=== PATIENT | female | born 2000 | race Caucasian/White ===

== ENCOUNTER 2024-05-08 17:42 | Emergency (ER) | payer BC, SELFPAY ==
[2024-05-08 17:52] VITALS: BP 117/72; PULSE 86; RESP 16; TEMP 37.1; O2SAT 100; BMI 24.6
[2024-05-08 18:54] LABS: Basophils % 0.5 %; Eosinophils # 0.1 10^3/uL (0.0-0.8); Eosinophils % 0.8 %; Hematocrit 38.8 % (36-47); Lymphocytes # 2.1 10^3/uL (0.8-4.8); Lymphocytes % 32.3 %; Mean Corpuscular HGB Conc 33.5 g/dL (30-55); Mean Corpuscular Hemoglobin 30.8 pg (27-33); Mean Corpuscular Volume 91.9 fl (85-98); Mean Platelet Volume 10.6 fL (7.4-10.4); Monocytes # 0.3 10^3/uL (0.2-0.9); Monocytes % 4.7 %; Neutrophils # 4.03 10^3/uL (1.8-7.7); Neutrophils % 61.4 %; Nucleated Red Blood Cells % 0 %; Platelet Count 332 10^3/cmm (157-399); Red Blood Count 4.22 10^6/uL (3.85-5.65); Red Cell Distribution Width 12.7 % (12.1-15.1); White Blood Count 6.56 10^3/uL (3.29-11.43)
[2024-05-08 19:03] VITALS: BP 104/72; PULSE 71; RESP 16; O2SAT 100
[2024-05-08 19:05] LABS: Add Urine Microscopic? NO; Charge for UA Resulting for Rev
[2024-05-08 19:10] LABS: Bilirubin Urine Neg (Negative); Blood Urine Neg (Negative); Glucose Urine UA Norm (Normal); Ketones Urine Negative (Negative); Leukocyte Esterase Urine Negative (Negative); Nitrate Urine Negative; Protein Urine Neg (Negative); Urine Appearance Clear (CLEAR); Urine Color Yellow (Yellow); Urobilinogen Urine Neg (Negative); pH Urine 5 (5-7)
[2024-05-08 19:11] LABS: Alanine Aminotransferase 10 U/L (0-33); Albumin Level 4.6 g/dL (3.5-5.2); Alkaline Phosphatase 76 U/L (35-105); Aspartate Amino Transferase 14 U/L (0-32); Blood Urea Nitrogen 8 mg/dL (6-20); Calcium 9.5 mg/dL (8.5-10.5); Carbon Dioxide 26 mmol/L (22-29); Chloride 106 mmol/L (98-107); Globulin 2.7 g/dL (1.3-4.6); Glomerular Filtration Rate 151.6 mL/min (90-130); Glucose 99 mg/dL (65-115); Lipase 43 U/L (13-60); Osmolality Calculated 294 mOsm/kg (285-295); Sodium 143 mmol/L (136-145); Total Bilirubin 0.6 mg/dL (0.15-1.2); Total Protein 7.3 g/dL (6.6-8.7)
[2024-05-08] MEDS: ondansetron 4 MG Tablet PO (19:38)
--- NOTE | 2024-05-08 19:44 | W.ED.NAVMDI ---
HPI - Nausea/Vomiting/Diarrhea General: Chief complaint: Nausea/Vomiting/Diarrhea Stated complaint: n/v, dizziness, 4 days Time Seen by Provider: 05/08/24 18:58 History of Present Illness: Patient presents to the ER with about 5 days of nausea and vomiting. She says she is hardly able to keep anything down. She is getting lightheaded dizzy when she stands up. Patient is taken multiple home tests and they are all been negative. Patient is actively trying get . Patient said no other complaints at this time and she has been around no one has been sick with similar components and is not eating any bad food that she is aware. Review of Systems General: Reports: 10 or more systems reviewed and unremarkable except in HPI and below Physical Exam Const: COMMON NORMALS: no acute distress, average body habitus, patient oriented x3, no limitations, healthy appearing, alert and well nourished HENMT: COMMON NORMALS: normocephalic, atraumatic, hearing grossly normal bilaterally, external ears normal, Normal external nose present, moist oral mucous membranes and oropharynx normal HEAD & SCALP: normocephalic and atraumatic NOSE: Normal external nose present EXTERNAL EAR: Yes external ears normal Neck/C-Spine: COMMON NORMALS: no JVD Chest: COMMONS NORMALS: normal inspection of the chest and normal palpation of entire chest wall Resp: COMMON NORMALS: normal respiratory effort, No retractions, No use of accessory muscles and clear to auscultation bilaterally AUSCULTATION: clear to auscultation bilaterally Cardio: COMMON NORMALS: no JVD, regular rate, regular rhythm, S1 normal heart sound present, S2 normal heart sound present, No gallops present (Cardio), No clicks present (Cardio), No murmurs present (Cardio) and No rub (Cardio) RATE: regular rate RHYTHM: regular rhythm HEART SOUNDS: S1 normal heart sound present and S2 normal heart sound present GI: COMMON NORMALS: Normal to inspection, nondistended, normoactive bowel sounds present, Soft to palpation, non-tender, No hepatosplenomegaly present and no masses PALPATION: Yes Soft to palpation and Yes No hepatosplenomegaly present Neuro: COMMON NORMALS: patient oriented x3 SENSORIUM/ORIENTATION: Yes alert Course Vital Signs: Vital signs: Vital Signs Temperature 98.8 F 05/08/24 17:52 Pulse Rate 71 05/08/24 19:03 Respiratory Rate 16 05/08/24 19:03 Blood Pressure 104/72 05/08/24 19:03 Pulse Oximetry 100 05/08/24 19:03 Oxygen Delivery Me thod Room Air 05/08/24 19:03 MDM - Nausea/Vomiting/Diarrhea Medical Decision Making Patient CBC CMP urinalysis lipase magnesium all of which is essentially negative for acute causes of nausea and vomiting. It is felt patient probably has a viral gastroenteritis. Patient will be given Zofran and instructed to follow-up with her PCP on an as-needed basis. Differential Diagnosis Likely gastroenteritis; Unlikely traveler's diarrhea, food poisoning, clostridium difficile infection, drug-induced nausea and vomiting or dehydration Medical Records I reviewed the patient's medical records. Lab Data I reviewed the patient's lab results. 05/08/24 18:47 05/08/24 18:47 Laboratory Results WBC 6.56 10^3/uL (3.29-11.43) 05/08/24 18:47 RBC 4.22 10^6/uL (3.85-5.65) 05/08/24 18:47 Hgb 13.00 g/dL (11.27-16.99) 05/08/24 18:47 Hct 38.8 % (36-47) 05/08/24 18:47 MCV 91.9 fl (85-98) 05/08/24 18:47 MCH 30.8 pg (27-33) 05/08/24 18:47 MCHC 33.5 g/dL (30-55) 05/08/24 18:47 RDW 12.7 % (12.1-15.1) 05/08/24 18:47 Plt Count 332 10^3/cmm (157-399) 05/08/24 18:47 MPV 10.6 fL (7.4-10.4) H 05/08/24 18:47 Neut % (Auto) 61.4 % 05/08/24 18:47 Lymph % (Auto) 32.3 % 05/08/24 18:47 [place] % (Auto) 4.7 % 05/08/24 18:47 Eos % (Auto) 0.8 % 05/08/24 18:47 Baso % (Auto) 0.5 % 05/08/24 18:47 Neut # (Auto) 4.03 10^3/uL (1.8-7.7) 05/08/24 18:47 Lymph # (Auto) 2.1 10^3/uL (0.8-4.8) 05/08/24 18:47 [place] # (Auto) 0.3 10^3/uL (0.2-0.9) 05/08/24 18:47 Eos # (Auto) 0.1 10^3/uL (0.0-0.8) 05/08/24 18:47 Baso # (Auto) 0.0 10^3/uL (0.0-0.1) 05/08/24 18:47 Nucleated RBC % (auto) 0 % 05/08/24 18:47 Nucleated RBCs # 0.0 /100WBC 05/08/24 18:47 Sodium 143 mmol/L (136-145) 05/08/24 18:47 Potassium 4.0 mmol/L (3.5-5.1) 05/08/24 18:47 Chloride 106 mmol/L (98-107) 05/08/24 18:47 Carbon Dioxide 26 mmol/L (22-29) 05/08/24 18:47 Anion Gap 15.0 (5-19) 05/08/24 18:47 BUN 8 mg/dL (6-20) 05/08/24 18:47 Creatinine 0.5 mg/dL (0.5-0.9) 05/08/24 18:47 GFR Calculation 151.6 mL/min (90-130) H 05/08/24 18:47 Glucose 99 mg/dL (65-115) 05/08/24 18:47 Calculated Osmolality 294 mOsm/kg (285-295) 05/08/24 18:47 Calcium 9.5 mg/dL (8.5-10.5) 05/08/24 18:47 Magnesium 2.0 mg/dL (1.7-2.3) 05/08/24 18:47 Total Bilirubin 0.6 mg/dL (0.15-1.2) 05/08/24 18:47 AST 14 U/L (0-32) 05/08/24 18:47 ALT 10 U/L (0-33) 05/08/24 18:47 Alkaline Phosphatase 76 U/L (35-105) 05/08/24 18:47 Total Protein 7.3 g/dL (6.6-8.7) 05/08/24 18:47 Albumin 4.6 g/dL (3.5-5.2) 05/08/24 18:47 Globulin 2.7 g/dL (1.3-4.6) 05/08/24 18:47 Lipase 43 U/L (13-60) 05/08/24 18:47 HCG, Qual Negative (Negative) 05/08/24 18:59 Urine Color Yellow (Yellow) 05/08/24 18:59 Urine Appearance Clear (CLEAR) 05/08/24 18:59 Urine pH 5 (5-7) 05/08/24 18:59 Ur Specific [place] 1.010 (1.005-1.030) 05/08/24 18:59 Urine Protein Neg (Negative) 05/08/24 18:59 Urine Glucose (UA) Norm (Normal) 05/08/24 18:59 Urine Ketones Negative (Negative) 05/08/24 18:59 Urine Blood Neg (Negative) 05/08/24 18:59 Urine Nitrate Negative 05/08/24 18:59 Urine Bilirubin Neg (Negative) 05/08/24 18:59 Urine Urobilinogen Neg mg/dL (Negative) 05/08/24 18:59 Ur Leukocyte Esterase Negative (Negative) 05/08/24 18:59 No radiology studies performed this visit Discharge Plan Discharge Patient Disposition: Home Clinical Impression: Gastroenteritis Condition: Stable Prescriptions: New ondansetron HCl 4 mg tablet 4 mg PO Q8H PRN (Reason: nausea and vomiting) Qty: 14 0RF Discharge Orders: Discharge ED (Routine); Ordered 05/08/24 Ordered By: Jerad Grossman Patient Instructions: Gastroenteritis (ED) Activity Restrictions/Additional Instructions: Your evaluation in the ER did not show any acute cause of your nausea and vomiting. All of your lab work was normal and your urine test was negative. You have been given a prescription for Zofran to help with the nausea and vomiting please drink plenty of fluids. This is usually viral in nature and is self-limiting. Follow-up with your family practitioner in the next 7 days for further evaluation and treatment. Coding Level of Care Code ED Force Variation Equipment Tender for Soren Robledo
[2024-05-08 20:31] LABS: HCG Qualitative Urine. Negative (Negative)
[2024-05-08 21:09] VITALS: PULSE 70; RESP 16; O2SAT 100
== END 2024-05-08 21:00 | disposition home or self-care (01) ==
PROVIDERS: Emergency Provider Emergency Medicine
DX: K52.9 Noninfective gastroenteritis and colitis, unspecified (principal)
CPT/HCPCS: 36415; 80053; 81003; 81025; 83690; 83735; 85025; 99283; Q0162